=== PATIENT | female | born 1990 ===

== ENCOUNTER 2019-09-14 05:51 | Emergency (ER) | payer MEDICAID ==
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
[2019-09-14] MEDS ORDERED: Bacitracin/Neomycin/Polymyxin B Oint 0.9 GM U/D Packet TOP ONE (06:35)
[2019-09-14] MEDS ORDERED: Diphtheria,Pertussis(Acell),Tetanus Vaccine 0.5 ML SDV IM ONE (06:35)
== END 2019-09-14 09:25 | disposition home or self-care (01) ==
LOC: LL.ED 05:51
DX: S01.01XA Laceration without foreign body of scalp, initial encounter (principal); F10.129 Alcohol abuse with intoxication, unspecified; Z23 Encounter for immunization; F17.210 Nicotine dependence, cigarettes, uncomplicated; Z71.6 Tobacco abuse counseling; Y04.0XXA Assault by unarmed brawl or fight, initial encounter
CPT/HCPCS: 12001; 70250; 90471; 90715; 99284; J2001